=== PATIENT | female | born 1965 ===

== ENCOUNTER 2018-06-21 10:57 | Outpatient (CLI) | payer OTHER ==
[~2018-06-21 10:57] MED LIST: [UNRECOGNIZED DRUG - OTHER] PO
== END 2018-06-21 11:01 | disposition home or self-care (01) ==
LOC: SONOGRAMA 10:57
DX: E04.1 Nontoxic single thyroid nodule (principal)

== ENCOUNTER 2021-02-27 11:49 | Outpatient (CLI) | payer OTHER | END 2021-02-27 12:51 | disposition home or self-care (01) | LOC: SONOGRAMA 11:49 | PROVIDERS: ATTEND Pathology Anatomic Pathology & Clinical Pathology | DX: E04.2 Nontoxic multinodular goiter (principal) ==

== ENCOUNTER 2024-11-07 06:34 | Day surgery (SDC) | payer OTHER ==
[2024-11-07] MEDS ORDERED: MIDAZOLAM HCL 2 MG/2 ML VIAL IV ONE (08:45)
[2024-11-07] MEDS ORDERED: DIPHENHYDRAMINE HCL 50 MG/ML VIAL 1ML IV ONE (08:45)
[2024-11-07] MEDS ORDERED: fentaNYL CITRATE 50 MCG/ML AMPUL IV PUSH ONE (08:45)
== END 2024-11-07 10:00 | disposition home or self-care (01) ==
LOC: AMB-ENDOS 06:34
PROVIDERS: ATTEND Colon & Rectal Surgery
DX: R19.4 Change in bowel habit (principal); K57.30 Diverticulosis of large intestine without perforation or abscess without bleeding; Z88.1 Allergy status to other antibiotic agents; Z88.2 Allergy status to sulfonamides